=== PATIENT | female | born 1995 | race Caucasian/White ===

== ENCOUNTER 2020-06-20 16:28 | Emergency (ER) | payer OTHER ==
[~2020-06-20] VITALS: Ht 157.5 cm; Wt 58.1 kg
[2020-06-20 16:32] VITALS: BP 105/53
--- NOTE | 2020-06-20 16:37 | NUR ---
CAME IN 24 YEAR OLD, FEMALE, AMBULATORY FROM TRIAGE, AWAKE ,ALERT, ORIENTEDX4, BREATHING SPONTANEOUSLY AT ROOM AIR, NOT IN DISTRESS. WITH CHIEF COMPLAINTS OF RT EAR PAIN FOR 3 DAYS, WENT TO URGENT CARE 3DAYS AGO AND ANTIBIOTIC WAS PRESCRIBED. TODAY BOTH EAR PAIN CLAIMED. NO PREVIOUS MEDICAL/SURGICAL HISTORY NOTED. NO KNOWN ALLERGY, INITIAL VITAL SIGNS STABLE
[2020-06-20 16:55] VITALS: BP 101/63
[2020-06-20] MEDS ORDERED: KETOROLAC 30 MG/ML VIAL IM ONE (17:00)
--- NOTE | 2020-06-20 17:11 | NUR ---
TRANSFERRED TO CHAIR C AMBULATORY IN STABLE CONDITION
[2020-06-20] MEDS ORDERED: CIPR7.5S OT (17:43)
--- NOTE | 2020-06-20 17:55 | NUR ---
Patient discharged with v/s stable. Written and verbal after care instructions given and explained. Patient alert, oriented and verbalized understanding of instructions. Ambulatory with steady gait. All questions addressed prior to discharge. ID band removed. Patient advised to follow up with PMD. Rx of cirpo otic drops given. Patient educated on indication of medication including possible reaction and side effects. Opportunity to ask questions provided and answered.
== END 2020-06-20 17:55 | disposition home or self-care (01) ==
LOC: MED 16:28
DX: H60.91 Unspecified otitis externa, right ear (principal); J02.9 Acute pharyngitis, unspecified; Z79.899 Other long term (current) drug therapy
CPT/HCPCS: 96372; 99283; J1885